=== PATIENT | female | born 1960 | race Caucasian/White ===

== ENCOUNTER → 2018-02-19 | Outpatient (CLI) | payer MEDICARE | LOC: M SLEEP 19:34 | DX: G47.33 Obstructive sleep apnea (adult) (pediatric) (principal); G47.61 Periodic limb movement disorder | CPT/HCPCS: 95810 ==

== ENCOUNTER → 2018-02-20 | Outpatient (CLI) | payer MEDICARE ==
[~2018-02-20] MED LIST: METHACHOLINE KIT (J7674) INH
== END ==
LOC: M CARPUL 06:57
DX: D86.0 Sarcoidosis of lung (principal)
CPT/HCPCS: J7674